=== PATIENT | female | born 1980 | race Caucasian/White ===

== ENCOUNTER 2017-08-08 02:30 | Observation (INO) | payer OTHER ==
[2017-08-08] MEDS ORDERED: HYDROMORPHONE HCL 2 MG/ML SOL IV ONE (02:47)
[2017-08-08] MEDS ORDERED: HYDROMORPHONE HCL 2 MG/ML SOL ONE (02:54)
[2017-08-08] MEDS: SODIUM CHLORIDE 0.9% FLUSH 10 ML SOL IV PRN ×2 (03:15→09:12)
[2017-08-08 03:16] LABS: BASOPHILS % (AUTO) 1 % (0-3); EOSINOPHILS % (AUTO) 2 % (0-9); HEMATOCRIT 41 % (35-47); MEAN CORPUSCULAR HGB CONC 32.9 gm/dl (32.0-36.0); MEAN CORPUSCULAR VOLUME 86 fL (81-99); MONOCYTES % (AUTO) 6.8 % (0-12); NEUTROPHILS % (AUTO) 69.2 % (37-80)
[2017-08-08] MEDS ORDERED: ONDANSETRON HCL 4 MG/2 ML SOL ONE (03:16)
[2017-08-08] MEDS ORDERED: ONDANSETRON HCL 4 MG/2 ML SOL IV ONE (03:16)
[2017-08-08 03:28] LABS: APPEARANCE,URINE Clear; BILIRUBIN,URINE NEGATIVE (NEGATIVE); COLOR,URINE Yellow; GLUCOSE, URINE (UA) NEGATIVE (NEGATIVE); KETONES,URINE NEGATIVE (NEGATIVE); LEUKOCYTE ESTERASE ,URINE NEGATIVE (NEGATIVE); NITRATE,URINE NEGATIVE (NEGATIVE); OCCULT BLOOD,URINE NEGATIVE (NEG-TRACE); PH,URINE 5.5; UROBILINOGEN,URINE 0.2 (0.2-1.0 EU)
[2017-08-08 03:34] LABS: ALBUMIN 3.9 gm/dl (3.4-5.0); POTASSIUM 4.1 mMol/L (3.5-5.1)
[2017-08-08 03:42] LABS: RBC,URINE NEGATIVE (0-3AV/HPF)
[2017-08-08] MEDS ORDERED: SODIUM CHLORIDE 0.9% 1000ML 1,000 ML IV ONE (03:58)
[2017-08-08] MEDS ORDERED: METHYLPHENIDATE PO PRN (04:01)
[2017-08-08] MEDS ORDERED: LISDEXAMFETAMINE DIMESYLATE 70 MG PO PRN (04:01)
[2017-08-08] MEDS ORDERED: CLONAZEPAM 0.5 MG TAB PO PRN (04:01)
[2017-08-08] MEDS ORDERED: HYDROMORPHONE 1 MG/ML SYRINGE IV PRN (04:03)
[2017-08-08] MEDS ORDERED: SODIUM CHLORIDE 0.9% 1000ML 1,000 ML IV SCH (07:00)
[2017-08-08] MEDS: ONDANSETRON HCL 4 MG/2 ML SOL IV PRN ×2 (07:59→14:39)
[2017-08-08] MEDS: SODIUM CHLORIDE 0.9% 1000ML 1,000 ML IV SCH ×3 (09:12→20:09)
[2017-08-08] MEDS ORDERED: HYDROMORPHONE HCL 2 MG/ML SOL IV PRN (09:15)
[2017-08-08] MEDS ORDERED: MAGNESIUM CITRATE SOL PO PRN (12:25)
[2017-08-08] MEDS ORDERED: KETOROLAC TROMETHAMINE 30 MG/ML SOL IV ONE (14:35)
[2017-08-08] MEDS ORDERED: LISINOPRIL 20 MG TAB PO SCH (21:00)
[2017-08-08] MEDS ORDERED: LEVOTHYROXINE SODIUM 50 MCG TAB PO SCH (21:00)
[2017-08-08] MEDS ORDERED: BUPROPION XL 300 MG T24 PO SCH (21:00)
[2017-08-08] MEDS ORDERED: ATORVASTATIN 10 MG TAB PO SCH (21:00)
[2017-08-08] MEDS ORDERED: FLUOXETINE HYDROCHLORIDE 10 MG CAP PO SCH (21:00)
[2017-08-08] MEDS: KETOROLAC TROMETHAMINE 30 MG/ML SOL IV PRN (22:28)
[2017-08-09] MEDS: KETOROLAC TROMETHAMINE 30 MG/ML SOL IV PRN (04:08)
[2017-08-09] MEDS: APAP/HYDROCODONE 325/5 TAB PO PRN ×2 (08:22→13:11)
[2017-08-09] MEDS ORDERED: CYCLOBENZAPRINE 10 MG TAB PO PRN (08:31)
[2017-08-09] MEDS ORDERED: NAPROXEN 500 MG TAB PO SCH (09:00)
[2017-08-09 10:27] VITALS: BP 113/75; PULSE 65; RESP 18; TEMP 98; O2SAT 98
== END 2017-08-09 18:10 | disposition home or self-care (01) | DRG 552 ==
LOC: ED 02:30 → ACUTE CARE 03:52
PROVIDERS: ADMIT Family Medicine; ATTEND Family Medicine
DX: M54.9 Dorsalgia, unspecified (principal); Z68.43 Body mass index [BMI] 50.0-59.9, adult; R11.0 Nausea; E66.9 Obesity, unspecified
CPT/HCPCS: 74176; 80053; 81001; 85025; 87088; 96374; 96375; 99218; 99284; J1170; J1885; J2405